=== PATIENT | male | born 1985 | race African-American/Black ===

== ENCOUNTER 2017-10-06 19:50 | Emergency (ER) | payer OTHER ==
[~2017-10-06] VITALS: Ht 167.6 cm; Wt 54.5 kg
[2017-10-06 22:05] VITALS: BP 132/91
== END 2017-10-06 22:07 | disposition home or self-care (01) ==
LOC: EMS 19:56
DX: Z76.0 Encounter for issue of repeat prescription (principal); F17.210 Nicotine dependence, cigarettes, uncomplicated
CPT/HCPCS: 99283

== ENCOUNTER 2022-03-25 04:46 | Emergency (ER) | payer OTHER ==
[~2022-03-25] VITALS: Ht 167.6 cm; Wt 68.2 kg
[2022-03-25 04:50] VITALS: BP 119/70
== END 2022-03-25 05:49 | disposition left against medical advice (07) ==
LOC: EMS 04:48
DX: Z53.21 Procedure and treatment not carried out due to patient leaving prior to being seen by health care provider (principal)

== ENCOUNTER 2022-10-23 19:12 | Inpatient (IN) | payer OTHER ==
[~2022-10-23] VITALS: Ht 167.6 cm; Wt 65.0 kg
[2022-10-23] MEDS ORDERED: KETOROLAC TROMETHAMINE 30 MG/ML VIAL IVP ONE (20:30)
[2022-10-23] MEDS ORDERED: ACETAMINOPHEN 500 MG TABLET PO ONE (20:30)
[2022-10-23] MEDS ORDERED: 0.9% SODIUM CHLORIDE 10 ML SYRINGE IVP PRN (20:30)
[2022-10-23] MEDS ORDERED: SODIUM CHLORIDE 0.9% 1,950 ML IV ONE (20:30)
[2022-10-23 20:45] LABS: BASOPHILS % (AUTO) 0.2 % (0.0-2.0); EOSINOPHILS % (AUTO) 0.1 % (1.0-6.0); HEMATOCRIT 36.8 % (41-53); HEMOGLOBIN 12.3 g/dL (13.5-17.5); LYMPHOCYTES # (AUTO) 0.7 K/uL (1.0-4.8); LYMPHOCYTES % (AUTO) 6.9 % (22.0-44.0); MEAN CORPUSCULAR HEMOGLOBIN 29.1 pg (26.0-34.0); MEAN CORPUSCULAR HGB CONC 33.3 G/dL (31.0-37.0); MEAN CORPUSCULAR VOLUME 87 fL (80-100); MONOCYTES # (AUTO) 0.6 K/uL (0.1-1.0); MONOCYTES % (AUTO) 6.5 % (2.0-9.0); NEUTROPHILS # (AUTO) 8.3 K/uL (1.8-7.7); PLATELET COUNT (AUTO) 298 K/uL (150-450); RED BLOOD CELL COUNT(AUTO) 4.22 MIL/uL (4.50-5.90); RED CELL DISTRIBUTION WIDTH 14.7 % (11.5-14.5)
[2022-10-23 20:46] LABS: NEUTROPHILS % (AUTO) 86.3 % (40.0-70.0)
[2022-10-23 20:55] LABS: ANION GAP 9 mmol/L (8-16); CALCIUM, TOTAL 9.2 mg/dL (8.8-10.5); CARBON DIOXIDE 27 mmol/L (22-29); CHLORIDE 97 mmol/L (98-107); CREATININE 1.08 mg/dL (0.60-1.30); GLOMERULAR FILTR. RATE CALC > 60 mL/min (>60); GLUCOSE,RANDOM 100 mg/dL (70-110); POTASSIUM 4.3 mmol/L (3.5-5.1); SODIUM SERUM 133 mmol/L (136-145); UREA NITROGEN, BLOOD 14 mg/dL (7-18)
[2022-10-23 20:59] LABS: INR 1.1 (0.9-1.1); PROTHROMBIN TIME 11.2 SEC (9.4-11.6)
[2022-10-23 21:03] LABS: LACTIC ACID 1.1 mmol/L (0.4-2.0)
[2022-10-23 21:15] LABS: B-TYPE NATRIURETIC PEPTIDE 25 pg/mL (0-100)
[2022-10-23 21:20] LABS: ALANINE AMINOTRANSFERASE 36 U/L (12-78); ALKALINE PHOSPHATASE 131 U/L (46-116); ASPARTATE AMINOTRANSFERASE 63 U/L (15-37); BILIRUBIN,TOTAL 0.6 mg/dL (0.1-1.0); CREATINE KINASE, TOTAL ONLY 1611 U/L (39-308); TOTAL PROTEIN, SERUM 8.3 g/dL (6.4-8.2)
[2022-10-23] MEDS ORDERED: CefTRIAXone 1 GM/DEXTROSE 50 ML IV ONE (22:15)
[2022-10-23] MEDS ORDERED: ONDANSETRON HCL 4 MG/2 ML VIAL IVP PRN (22:15)
[2022-10-23] MEDS ORDERED: AZITHROMYCIN 500 MG/NS 250 ML IV ONE (22:15)
[2022-10-23 22:25] LABS: COVID AG,FIA SOURCE NASOPHARYNGEAL
[2022-10-23] MEDS ORDERED: [UNRECOGNIZED DRUG - REMARK] CONTEPI (22:31)
[2022-10-23 22:38] LABS: INFLUENZA TYPE A NEGATIVE FOR TYPE A (NEGATIVE); INFLUENZA TYPE B NEGATIVE FOR TYPE B (NEGATIVE)
[2022-10-23 22:39] LABS: RAPID GROUP A STREP NEGATIVE (NEGATIVE)
[2022-10-23] MEDS: RINGERS SOLUTION,LACTATED 1,000 ML IV SCH (23:02)
[2022-10-23] MEDS: HEPARIN SODIUM,PORCINE 5,000 UNITS/ML VIAL SQ SCH (23:49)
[2022-10-24 01:21] VITALS: BP 101/67
[2022-10-24 02:03] LABS: APPEARANCE,URINE CLEAR (CLEAR); BILIRUBIN,URINE NEGATIVE (NEGATIVE); GLUCOSE, URINE (UA) NEGATIVE (NEGATIVE); KETONES,URINE NEGATIVE (NEGATIVE); LEUKOCYTE ESTERASE ,URINE NEGATIVE (NEGATIVE); NITRATE,URINE NEGATIVE (NEGATIVE); OCCULT BLOOD,URINE NEGATIVE (NEGATIVE); PH,URINE 6.5 (5.0-8.0); PROTEIN,URINE 30-70 mg/dL (NEGATIVE); SPECIFIC GRAVITIY, URINE 1.013 (1.003-1.030)
[2022-10-24 02:10] LABS: AMPHET/METH SCREEN,URINE POSITIVE (NEGATIVE); BARBITURATE SCREEN, URINE NEGATIVE (NEGATIVE); BENZODIAZEPINES SCREEN,URINE NEGATIVE (NEGATIVE); CANNABINOID SCREEN,URINE NEGATIVE (NEGATIVE); COCAINE SCREEN,URINE NEGATIVE (NEGATIVE); METHADONE SCREEN, URINE NEGATIVE (NEGATIVE); OPIATE SCREEN,URINE NEGATIVE (NEGATIVE); PHENCYCLIDINE SCREEN,URINE NEGATIVE (NEGATIVE)
[2022-10-24 04:24] VITALS: BP 114/60
[2022-10-24 07:57] VITALS: BP 118/64
[2022-10-24] MEDS: HEPARIN SODIUM,PORCINE 5,000 UNITS/ML VIAL SQ SCH ×3 (08:07→22:54)
[2022-10-24] MEDS: RINGERS SOLUTION,LACTATED 1,000 ML IV SCH ×2 (15:08→15:09)
[2022-10-24 15:37] VITALS: BP 114/68
[2022-10-24 19:36] VITALS: BP 121/62
[2022-10-24] MEDS: CefTRIAXone 1 GM/DEXTROSE 50 ML IV SCH (21:51)
[2022-10-24] MEDS: AZITHROMYCIN 500 MG/NS 250 ML IV SCH (22:54)
[2022-10-25 04:50] VITALS: BP 117/74
[2022-10-25] MEDS: RINGERS SOLUTION,LACTATED 1,000 ML IV SCH ×4 (05:47→21:48)
[2022-10-25] MEDS: ACETAMINOPHEN 325 MG TABLET PO PRN ×2 (05:47→15:10)
[2022-10-25 07:50] VITALS: BP 112/81
[2022-10-25] MEDS: HEPARIN SODIUM,PORCINE 5,000 UNITS/ML VIAL SQ SCH ×3 (08:28→23:29)
[2022-10-25 15:00] VITALS: BP 107/54
[2022-10-25 16:25] VITALS: BP 110/59
[2022-10-25] MEDS: CefTRIAXone 1 GM/DEXTROSE 50 ML IV SCH (20:57)
[2022-10-25] MEDS: AZITHROMYCIN 500 MG/NS 250 ML IV SCH (23:29)
[2022-10-25 23:44] VITALS: BP 118/58
[2022-10-26 04:11] VITALS: BP 128/77
[2022-10-26] MEDS: ACETAMINOPHEN 325 MG TABLET PO PRN (06:21)
[2022-10-26 07:36] LABS: ANION GAP 6 mmol/L (8-16); CALCIUM, TOTAL 9.5 mg/dL (8.8-10.5); CARBON DIOXIDE 27 mmol/L (22-29); CHLORIDE 102 mmol/L (98-107); GLOMERULAR FILTR. RATE CALC > 60 mL/min (>60); GLUCOSE,RANDOM 98 mg/dL (70-110); POTASSIUM 3.9 mmol/L (3.5-5.1); SODIUM SERUM 135 mmol/L (136-145); UREA NITROGEN, BLOOD 5 mg/dL (7-18)
[2022-10-26 08:06] LABS: BASOPHILS % (AUTO) 0.5 % (0.0-2.0); HEMATOCRIT 34.3 % (41-53); HEMOGLOBIN 11.6 g/dL (13.5-17.5); LYMPHOCYTES # (AUTO) 1.5 K/uL (1.0-4.8); LYMPHOCYTES % (AUTO) 21.5 % (22.0-44.0); MEAN CORPUSCULAR HEMOGLOBIN 29.3 pg (26.0-34.0); MEAN CORPUSCULAR HGB CONC 33.7 G/dL (31.0-37.0); MEAN CORPUSCULAR VOLUME 87 fL (80-100); MONOCYTES # (AUTO) 0.6 K/uL (0.1-1.0); NEUTROPHILS # (AUTO) 4.8 K/uL (1.8-7.7); PLATELET COUNT (AUTO) 389 K/uL (150-450); RED BLOOD CELL COUNT(AUTO) 3.95 MIL/uL (4.50-5.90); RED CELL DISTRIBUTION WIDTH 14.2 % (11.5-14.5)
[2022-10-26] MEDS: HEPARIN SODIUM,PORCINE 5,000 UNITS/ML VIAL SQ SCH ×2 (08:22→15:57)
[2022-10-26 10:41] VITALS: BP 128/70
[2022-10-26 14:06] LABS: S PNEUMO SOURCE Urine; STREP PNEUMONIAE AG URINE Positive (Negative)
[2022-10-26 15:06] LABS: LEGIONELLA PNEUMO AG URINE Negative (Negative)
[2022-10-26 15:48] VITALS: BP 114/58
== END 2022-10-26 18:50 | disposition left against medical advice (07) | DRG 720 ==
LOC: EMS 19:13 → 6N 22:58
PROVIDERS: ADMIT Internal Medicine; ATTEND Internal Medicine
DX: A41.9 Sepsis, unspecified organism (principal); G93.41 Metabolic encephalopathy; J13 Pneumonia due to Streptococcus pneumoniae; M62.82 Rhabdomyolysis; E22.2 Syndrome of inappropriate secretion of antidiuretic hormone; Z53.29 Procedure and treatment not carried out because of patient's decision for other reasons; Z20.822 Contact with and (suspected) exposure to COVID-19; F15.10 Other stimulant abuse, uncomplicated; Z91.199 Patient's noncompliance with other medical treatment and regimen due to unspecified reason
CPT/HCPCS: 71045; 80048; 80053; 80307; 81003; 82550; 83605; 83880; 84145; 84484; 85025; 85610; 86361; 87040; 87070; 87077; 87205; 87430; 87449; 87804; 87899; 93005; 99285; G0480; J0456; J0696; J1644; J1885; J7030; J7120; 36415-L1; 36415-TC

== ENCOUNTER 2022-11-15 14:08 | Emergency (ER) | payer OTHER ==
[~2022-11-15] VITALS: Ht 167.6 cm; Wt 61.4 kg
[~2022-11-15 14:08] MED LIST: [UNRECOGNIZED DRUG - REMARK] CONTEPI
[2022-11-15] MEDS ORDERED: ELVI1TAB3 PO (14:16)
[2022-11-15] MEDS ORDERED: BACI28OI9 TP (14:24)
[2022-11-15] MEDS ORDERED: BACITRACIN 28 GM OINTMENT TP ONE (14:30)
[2022-11-15 15:05] VITALS: BP 113/79
== END 2022-11-15 15:19 | disposition home or self-care (01) ==
LOC: EMS 14:10
DX: S61.401D Unspecified open wound of right hand, subsequent encounter (principal); F15.90 Other stimulant use, unspecified, uncomplicated; Z98.890 Other specified postprocedural states; X58.XXXD Exposure to other specified factors, subsequent encounter
CPT/HCPCS: 99283

== ENCOUNTER 2023-03-25 04:21 | Inpatient (IN) | payer OTHER ==
[~2023-03-25] VITALS: Ht 167.6 cm; Wt 59.1 kg
[~2023-03-25 04:21] MED LIST changes: +BACI28.410 TP; +CEPH-558 PO; +ELVI1TAB3 PO; +SULF-261 PO; -[UNRECOGNIZED DRUG - REMARK] CONTEPI
[2023-03-25] MEDS ORDERED: SULFAMETHOX/TRIMETH DS 800-160 MG/TABLET PO ONE (07:00)
[2023-03-25] MEDS ORDERED: CEPHALEXIN MONOHYDRATE 500 MG CAPSULE PO ONE (07:00)
[2023-03-25 08:19] LABS: BASOPHILS % (AUTO) 0.3 % (0.0-2.0); EOSINOPHILS % (AUTO) 2.1 % (1.0-6.0); HEMATOCRIT 37.7 % (41-53); HEMOGLOBIN 12.3 g/dL (13.5-17.5); LYMPHOCYTES % (AUTO) 23.9 % (22.0-44.0); MEAN CORPUSCULAR HEMOGLOBIN 27.2 pg (26.0-34.0); MEAN CORPUSCULAR HGB CONC 32.5 G/dL (31.0-37.0); MEAN CORPUSCULAR VOLUME 84 fL (80-100); MONOCYTES # (AUTO) 0.5 K/uL (0.1-1.0); MONOCYTES % (AUTO) 11.8 % (2.0-9.0); NEUTROPHILS # (AUTO) 2.5 K/uL (1.8-7.7); NEUTROPHILS % (AUTO) 61.9 % (40.0-70.0); PLATELET COUNT (AUTO) 235 K/uL (150-450); RED CELL DISTRIBUTION WIDTH 15.4 % (11.5-14.5); WHITE BLOOD COUNT (AUTO) 4.1 K/uL (4.5-11.0)
[2023-03-25 08:31] LABS: ANION GAP 8 mmol/L (8-16); CALCIUM, TOTAL 8.6 mg/dL (8.8-10.5); CARBON DIOXIDE 27 mmol/L (22-29); CHLORIDE 102 mmol/L (98-107); CREATININE 0.82 mg/dL (0.60-1.30); GLOMERULAR FILTR. RATE CALC > 60 mL/min (>60); GLUCOSE,RANDOM 101 mg/dL (70-110); POTASSIUM 3.6 mmol/L (3.5-5.1); SODIUM SERUM 137 mmol/L (136-145); UREA NITROGEN, BLOOD 11 mg/dL (7-18)
[2023-03-25 08:34] LABS: ALANINE AMINOTRANSFERASE 18 U/L (12-78); ALBUMIN 3.2 g/dL (3.4-5.0); ALKALINE PHOSPHATASE 104 U/L (46-116); ASPARTATE AMINOTRANSFERASE 26 U/L (15-37); BILIRUBIN,TOTAL 0.3 mg/dL (0.1-1.0); TOTAL PROTEIN, SERUM 7.1 g/dL (6.4-8.2)
[2023-03-25] MEDS ORDERED: VANCOMYCIN 1GM/WATER(PEG/NADA) 200 ML IV ONE (08:45)
[2023-03-25] MEDS ORDERED: PROPOFOL 1% 20 ML VIAL IVP ONE (12:00)
[2023-03-25] MEDS ORDERED: LIDOCAINE/PF 2% 5 ML VIAL IM ONE (12:00)
[2023-03-25] MEDS ORDERED: MORPHINE SULFATE 2 MG/ML SYRINGE IVP PRN (12:45)
[2023-03-25] MEDS ORDERED: ZOLPIDEM TARTRATE 5 MG TABLET PO PRN (12:45)
[2023-03-25] MEDS ORDERED: HYDROCODONE/ACETAMINOPHEN 5-325 MG TABLET PO PRN (12:45)
[2023-03-25] MEDS ORDERED: ACETAMINOPHEN 325 MG TABLET PO PRN (12:45)
[2023-03-25] MEDS ORDERED: MAGNESIUM HYDROXIDE SUSPENSION 30 ML UDCUP PO PRN (12:45)
[2023-03-25] MEDS ORDERED: ONDANSETRON HCL 4 MG/2 ML VIAL IVP PRN (12:45)
[2023-03-25] MEDS ORDERED: BISACODYL 10 MG RECTAL RECTAL SUPPOSITORY PR PRN (12:45)
[2023-03-25 15:27] VITALS: BP 115/71; PULSE 78; RESP 20; TEMP 97.9; O2SAT 99
[2023-03-25] MEDS ORDERED: SODIUM CHLORIDE 0.9% 500 ML IV ONE (16:14)
[2023-03-25] MEDS: VANCOMYCIN HCL 750 MG in DEXTROSE 5%-WATER 250 ML IV SCH ×2 (17:14→23:26)
[2023-03-25] MEDS: HEPARIN SODIUM,PORCINE 5,000 UNITS/ML VIAL SQ SCH ×2 (17:17→23:27)
[2023-03-25 18:16] VITALS: BP 115/71; PULSE 78; RESP 20; TEMP 97.9
[2023-03-25 19:55] VITALS: BP 123/73; PULSE 83; RESP 20; TEMP 98.2
[2023-03-25] MEDS: DOCUSATE SODIUM 100 MG CAPSULE PO SCH (20:00)
[2023-03-26 04:25] VITALS: BP 99/72; PULSE 73; RESP 18; TEMP 97.9
[2023-03-26 07:52] LABS: BASOPHILS % (AUTO) 0.7 % (0.0-2.0); EOSINOPHILS % (AUTO) 2.9 % (1.0-6.0); HEMATOCRIT 41.4 % (41-53); HEMOGLOBIN 13.3 g/dL (13.5-17.5); LYMPHOCYTES # (AUTO) 1.2 K/uL (1.0-4.8); LYMPHOCYTES % (AUTO) 33.7 % (22.0-44.0); MEAN CORPUSCULAR HGB CONC 32.2 G/dL (31.0-37.0); MEAN CORPUSCULAR VOLUME 84 fL (80-100); MONOCYTES # (AUTO) 0.5 K/uL (0.1-1.0); MONOCYTES % (AUTO) 13.6 % (2.0-9.0); NEUTROPHILS # (AUTO) 1.8 K/uL (1.8-7.7); NEUTROPHILS % (AUTO) 49.1 % (40.0-70.0); PLATELET COUNT (AUTO) 250 K/uL (150-450); RED BLOOD CELL COUNT(AUTO) 4.93 MIL/uL (4.50-5.90); RED CELL DISTRIBUTION WIDTH 15.7 % (11.5-14.5); WHITE BLOOD COUNT (AUTO) 3.6 K/uL (4.5-11.0)
[2023-03-26 08:11] LABS: ANION GAP 9 mmol/L (8-16); CALCIUM, TOTAL 8.9 mg/dL (8.8-10.5); CARBON DIOXIDE 26 mmol/L (22-29); CHLORIDE 101 mmol/L (98-107); CREATININE 0.96 mg/dL (0.60-1.30); GLOMERULAR FILTR. RATE CALC > 60 mL/min (>60); GLUCOSE,RANDOM 82 mg/dL (70-110); POTASSIUM 4.5 mmol/L (3.5-5.1); SODIUM SERUM 136 mmol/L (136-145); UREA NITROGEN, BLOOD 15 mg/dL (7-18)
[2023-03-26 08:22] LABS: VANCOMYCIN,RANDOM 16.1 mcg/mL (25.0-50.0)
[2023-03-26 08:24] VITALS: BP 104/75; PULSE 79; RESP 20; TEMP 97.7
[2023-03-26] MEDS: HEPARIN SODIUM,PORCINE 5,000 UNITS/ML VIAL SQ SCH ×2 (08:32→15:43)
[2023-03-26] MEDS: PANTOPRAZOLE SODIUM 40 MG DR TABLET PO SCH (08:33)
[2023-03-26] MEDS: ELVITEG/COB/EMTRI/TENOF ALAFEN 150-150-200-10MG TABLET PO SCH (08:33)
[2023-03-26] MEDS: DOCUSATE SODIUM 100 MG CAPSULE PO SCH ×2 (08:33→21:00)
[2023-03-26] MEDS: VANCOMYCIN HCL 750 MG in DEXTROSE 5%-WATER 250 ML IV SCH ×2 (09:36→15:43)
[2023-03-26 16:44] VITALS: BP 110/56; PULSE 68; RESP 20; TEMP 98.4
[2023-03-26 20:10] VITALS: BP 119/74; PULSE 70; RESP 18; TEMP 98.4
[2023-03-27] MEDS: HEPARIN SODIUM,PORCINE 5,000 UNITS/ML VIAL SQ SCH ×4 (00:05→23:26)
[2023-03-27] MEDS: VANCOMYCIN HCL 750 MG in DEXTROSE 5%-WATER 250 ML IV SCH ×4 (00:05→23:37)
[2023-03-27 04:38] VITALS: BP 123/68; PULSE 66; RESP 20; TEMP 98.9
[2023-03-27 07:06] LABS: BASOPHILS % (AUTO) 0.5 % (0.0-2.0); EOSINOPHILS % (AUTO) 2.8 % (1.0-6.0); HEMATOCRIT 41.5 % (41-53); HEMOGLOBIN 13.6 g/dL (13.5-17.5); LYMPHOCYTES # (AUTO) 1.4 K/uL (1.0-4.8); LYMPHOCYTES % (AUTO) 37.1 % (22.0-44.0); MEAN CORPUSCULAR HEMOGLOBIN 27.3 pg (26.0-34.0); MEAN CORPUSCULAR HGB CONC 32.7 G/dL (31.0-37.0); MEAN CORPUSCULAR VOLUME 84 fL (80-100); MONOCYTES # (AUTO) 0.5 K/uL (0.1-1.0); MONOCYTES % (AUTO) 13.9 % (2.0-9.0); NEUTROPHILS # (AUTO) 1.7 K/uL (1.8-7.7); NEUTROPHILS % (AUTO) 45.7 % (40.0-70.0); PLATELET COUNT (AUTO) 266 K/uL (150-450); RED BLOOD CELL COUNT(AUTO) 4.97 MIL/uL (4.50-5.90); RED CELL DISTRIBUTION WIDTH 15.5 % (11.5-14.5); WHITE BLOOD COUNT (AUTO) 3.8 K/uL (4.5-11.0)
[2023-03-27 07:17] LABS: ANION GAP 8 mmol/L (8-16); CARBON DIOXIDE 27 mmol/L (22-29); CHLORIDE 101 mmol/L (98-107); CREATININE 0.89 mg/dL (0.60-1.30); GLOMERULAR FILTR. RATE CALC > 60 mL/min (>60); GLUCOSE,RANDOM 86 mg/dL (70-110); POTASSIUM 4.2 mmol/L (3.5-5.1); SODIUM SERUM 136 mmol/L (136-145); UREA NITROGEN, BLOOD 15 mg/dL (7-18)
[2023-03-27 08:37] VITALS: BP 114/58; PULSE 68; RESP 20; TEMP 98.6
[2023-03-27] MEDS: ELVITEG/COB/EMTRI/TENOF ALAFEN 150-150-200-10MG TABLET PO SCH (08:56)
[2023-03-27] MEDS: DOCUSATE SODIUM 100 MG CAPSULE PO SCH ×2 (08:57→19:34)
[2023-03-27] MEDS: PANTOPRAZOLE SODIUM 40 MG DR TABLET PO SCH (08:57)
[2023-03-27 15:04] LABS: ALCOHOL, URINE DRUG SCREEN NEGATIVE (NEGATIVE); AMPHET/METH SCREEN,URINE NEGATIVE (NEGATIVE); BARBITURATE SCREEN, URINE NEGATIVE (NEGATIVE); BENZODIAZEPINES SCREEN,URINE NEGATIVE (NEGATIVE); CANNABINOID SCREEN,URINE NEGATIVE (NEGATIVE); COCAINE SCREEN,URINE NEGATIVE (NEGATIVE); METHADONE SCREEN, URINE NEGATIVE (NEGATIVE); OPIATE SCREEN,URINE NEGATIVE (NEGATIVE); PHENCYCLIDINE SCREEN,URINE NEGATIVE (NEGATIVE)
[2023-03-27 16:31] VITALS: BP 120/58; PULSE 65; RESP 20; TEMP 98.4
[2023-03-27 20:49] VITALS: BP 111/64; PULSE 82; RESP 18; TEMP 98.9
[2023-03-28 04:00] VITALS: BP 113/71; PULSE 65; RESP 16; TEMP 97.9
[2023-03-28 07:19] LABS: ANION GAP 8 mmol/L (8-16); CALCIUM, TOTAL 9.2 mg/dL (8.8-10.5); CARBON DIOXIDE 28 mmol/L (22-29); CHLORIDE 101 mmol/L (98-107); CREATININE 0.86 mg/dL (0.60-1.30); GLOMERULAR FILTR. RATE CALC > 60 mL/min (>60); GLUCOSE,RANDOM 86 mg/dL (70-110); POTASSIUM 4.1 mmol/L (3.5-5.1); SODIUM SERUM 137 mmol/L (136-145); UREA NITROGEN, BLOOD 16 mg/dL (7-18)
[2023-03-28] MEDS ORDERED: SODIUM CHLORIDE 0.9% 1,000 ML ONE (07:20)
[2023-03-28 07:24] LABS: BASOPHILS % (AUTO) 0.5 % (0.0-2.0); HEMATOCRIT 43.7 % (41-53); HEMOGLOBIN 13.9 g/dL (13.5-17.5); LYMPHOCYTES # (AUTO) 1.7 K/uL (1.0-4.8); LYMPHOCYTES % (AUTO) 38.9 % (22.0-44.0); MEAN CORPUSCULAR HEMOGLOBIN 26.5 pg (26.0-34.0); MEAN CORPUSCULAR HGB CONC 31.7 G/dL (31.0-37.0); MEAN CORPUSCULAR VOLUME 84 fL (80-100); MONOCYTES # (AUTO) 0.7 K/uL (0.1-1.0); NEUTROPHILS # (AUTO) 1.8 K/uL (1.8-7.7); NEUTROPHILS % (AUTO) 42.6 % (40.0-70.0); PLATELET COUNT (AUTO) 278 K/uL (150-450); RED BLOOD CELL COUNT(AUTO) 5.22 MIL/uL (4.50-5.90); WHITE BLOOD COUNT (AUTO) 4.3 K/uL (4.5-11.0)
[2023-03-28] MEDS: HEPARIN SODIUM,PORCINE 5,000 UNITS/ML VIAL SQ SCH ×3 (08:00→23:10)
[2023-03-28] MEDS ORDERED: FentaNYL CITRATE PF 100 MCG/2 ML VIAL IVP PRN (08:45)
[2023-03-28] MEDS ORDERED: HYDROmorphone HCL 2 MG/ML SYRINGE IVP PRN (08:45)
[2023-03-28] MEDS ORDERED: LIDOCAINE/PF 1% 30 ML VIAL PERC ONE (08:55)
[2023-03-28] MEDS ORDERED: VANCOMYCIN HCL 1 GM/VIAL IRRIG ONE (08:55)
[2023-03-28] MEDS ORDERED: BUPIVACAINE HCL/PF 0.5% 30 ML VIAL PERC ONE (08:55)
[2023-03-28] MEDS: DOCUSATE SODIUM 100 MG CAPSULE PO SCH ×2 (09:00→20:14)
[2023-03-28] MEDS: VANCOMYCIN HCL 750 MG in DEXTROSE 5%-WATER 250 ML IV SCH ×3 (10:37→23:10)
[2023-03-28] MEDS: ELVITEG/COB/EMTRI/TENOF ALAFEN 150-150-200-10MG TABLET PO SCH (10:38)
[2023-03-28] MEDS: PANTOPRAZOLE SODIUM 40 MG DR TABLET PO SCH (10:38)
[2023-03-28 16:40] VITALS: BP 121/65; PULSE 77; RESP 20; TEMP 99
[2023-03-28] MEDS ORDERED: OXYGEN THERAPY IH SCH (20:00)
[2023-03-28 20:17] VITALS: BP 120/70; PULSE 70; RESP 20; TEMP 98
[2023-03-28] MEDS ORDERED: SODIUM CHLORIDE 0.9% 500 ML IV ONE (22:57)
[2023-03-29 04:02] VITALS: BP 114/70; PULSE 61; RESP 20; TEMP 98.2
[2023-03-29 07:41] LABS: ANION GAP 8 mmol/L (8-16); CALCIUM, TOTAL 9.2 mg/dL (8.8-10.5); CARBON DIOXIDE 28 mmol/L (22-29); CHLORIDE 100 mmol/L (98-107); CREATININE 0.89 mg/dL (0.60-1.30); GLOMERULAR FILTR. RATE CALC > 60 mL/min (>60); GLUCOSE,RANDOM 86 mg/dL (70-110); POTASSIUM 4.2 mmol/L (3.5-5.1); SODIUM SERUM 136 mmol/L (136-145); UREA NITROGEN, BLOOD 16 mg/dL (7-18)
[2023-03-29] MEDS: ELVITEG/COB/EMTRI/TENOF ALAFEN 150-150-200-10MG TABLET PO SCH (08:01)
[2023-03-29] MEDS: PANTOPRAZOLE SODIUM 40 MG DR TABLET PO SCH (08:02)
[2023-03-29] MEDS: DOCUSATE SODIUM 100 MG CAPSULE PO SCH ×2 (08:02→20:46)
[2023-03-29] MEDS: VANCOMYCIN HCL 750 MG in DEXTROSE 5%-WATER 250 ML IV SCH ×3 (08:02→23:28)
[2023-03-29] MEDS: HEPARIN SODIUM,PORCINE 5,000 UNITS/ML VIAL SQ SCH ×3 (08:02→23:28)
[2023-03-29 08:19] VITALS: BP 112/75; PULSE 62; RESP 19; TEMP 98.5
[2023-03-29 15:58] VITALS: BP 127/72; PULSE 78; RESP 18; TEMP 98.8
[2023-03-29 20:58] VITALS: BP 120/69; PULSE 67; RESP 18; TEMP 97.9
[2023-03-30 05:18] VITALS: BP 106/72; PULSE 87; RESP 18; TEMP 98.4
[2023-03-30 07:58] LABS: ANION GAP 11 mmol/L (8-16); CALCIUM, TOTAL 9.2 mg/dL (8.8-10.5); CARBON DIOXIDE 26 mmol/L (22-29); CHLORIDE 98 mmol/L (98-107); CHOL/HDL RATIO 3.4 (4.2-7.3); CHOLESTEROL 204 mg/dL (131-200); CREATININE 0.97 mg/dL (0.60-1.30); GLOMERULAR FILTR. RATE CALC > 60 mL/min (>60); GLUCOSE,RANDOM 101 mg/dL (70-110); HDL CHOLESTEROL 60 mg/dL (40-60); LDL CHOL (CALC.) 124 mg/dL (0-130); POTASSIUM 3.8 mmol/L (3.5-5.1); SODIUM SERUM 135 mmol/L (136-145); TRIGLYCERIDES 101 mg/dL (15-150); UREA NITROGEN, BLOOD 15 mg/dL (7-18)
[2023-03-30 08:20] VITALS: BP 120/72; PULSE 92; RESP 19; TEMP 98.8
[2023-03-30] MEDS: ELVITEG/COB/EMTRI/TENOF ALAFEN 150-150-200-10MG TABLET PO SCH (08:49)
[2023-03-30] MEDS: VANCOMYCIN HCL 750 MG in DEXTROSE 5%-WATER 250 ML IV SCH ×3 (08:49→23:30)
[2023-03-30] MEDS: DOCUSATE SODIUM 100 MG CAPSULE PO SCH ×2 (08:50→20:08)
[2023-03-30] MEDS: HEPARIN SODIUM,PORCINE 5,000 UNITS/ML VIAL SQ SCH ×4 (08:50→23:30)
[2023-03-30] MEDS: PANTOPRAZOLE SODIUM 40 MG DR TABLET PO SCH (08:50)
[2023-03-30 19:32] VITALS: BP 104/64; PULSE 64; RESP 20; TEMP 98.7
[2023-03-30] MEDS: ETHYL ALCOHOL 62% ANTISEPTIC NASAL SANITIZER 0.6 ML AMPUL NASAL SCH (20:08)
[2023-03-31 03:52] VITALS: BP 112/56; PULSE 82; RESP 18; TEMP 98.1
[2023-03-31 08:07] LABS: ANION GAP 8 mmol/L (8-16); CALCIUM, TOTAL 9.3 mg/dL (8.8-10.5); CARBON DIOXIDE 28 mmol/L (22-29); CHLORIDE 100 mmol/L (98-107); GLOMERULAR FILTR. RATE CALC > 60 mL/min (>60); GLUCOSE,RANDOM 97 mg/dL (70-110); POTASSIUM 4.1 mmol/L (3.5-5.1); SODIUM SERUM 136 mmol/L (136-145); UREA NITROGEN, BLOOD 15 mg/dL (7-18)
[2023-03-31 08:38] VITALS: BP 100/60; PULSE 83; RESP 20; TEMP 98.4
[2023-03-31] MEDS: ETHYL ALCOHOL 62% ANTISEPTIC NASAL SANITIZER 0.6 ML AMPUL NASAL SCH ×2 (08:56→20:54)
[2023-03-31] MEDS: ELVITEG/COB/EMTRI/TENOF ALAFEN 150-150-200-10MG TABLET PO SCH (08:56)
[2023-03-31] MEDS: DOCUSATE SODIUM 100 MG CAPSULE PO SCH ×2 (08:56→20:54)
[2023-03-31] MEDS: PANTOPRAZOLE SODIUM 40 MG DR TABLET PO SCH (08:56)
[2023-03-31] MEDS: VANCOMYCIN HCL 750 MG in DEXTROSE 5%-WATER 250 ML IV SCH ×3 (09:07→23:15)
[2023-03-31] MEDS: HEPARIN SODIUM,PORCINE 5,000 UNITS/ML VIAL SQ SCH ×3 (09:08→23:13)
[2023-03-31 09:32] LABS: VANCOMYCIN,RANDOM 20.3 mcg/mL (25.0-50.0)
[2023-03-31] MEDS ORDERED: CIPR250T6 PO (11:48)
[2023-03-31 16:00] VITALS: BP 103/62; PULSE 74; RESP 20; TEMP 98.2
[2023-03-31 20:36] VITALS: BP 115/72; PULSE 77; RESP 18; TEMP 98.4
[2023-03-31] MEDS ORDERED: SODIUM CHLORIDE 0.9% 250 ML IV ONE (22:36)
[2023-04-01 04:49] VITALS: BP 100/52; PULSE 78; RESP 18; TEMP 98.7
[2023-04-01 08:00] LABS: ANION GAP 6 mmol/L (8-16); CALCIUM, TOTAL 9.2 mg/dL (8.8-10.5); CARBON DIOXIDE 31 mmol/L (22-29); CHLORIDE 99 mmol/L (98-107); CREATININE 1.11 mg/dL (0.60-1.30); GLOMERULAR FILTR. RATE CALC > 60 mL/min (>60); GLUCOSE,RANDOM 80 mg/dL (70-110); SODIUM SERUM 136 mmol/L (136-145); UREA NITROGEN, BLOOD 15 mg/dL (7-18)
[2023-04-01 08:15] VITALS: BP 100/65; PULSE 59; RESP 20; TEMP 98.2
[2023-04-01] MEDS: VANCOMYCIN HCL 750 MG in DEXTROSE 5%-WATER 250 ML IV SCH ×2 (08:26→16:46)
[2023-04-01] MEDS: HEPARIN SODIUM,PORCINE 5,000 UNITS/ML VIAL SQ SCH ×2 (08:26→16:46)
[2023-04-01] MEDS: ETHYL ALCOHOL 62% ANTISEPTIC NASAL SANITIZER 0.6 ML AMPUL NASAL SCH (08:26)
[2023-04-01] MEDS: PANTOPRAZOLE SODIUM 40 MG DR TABLET PO SCH (08:26)
[2023-04-01] MEDS: ELVITEG/COB/EMTRI/TENOF ALAFEN 150-150-200-10MG TABLET PO SCH (08:27)
[2023-04-01] MEDS: DOCUSATE SODIUM 100 MG CAPSULE PO SCH (08:27)
[2023-04-01] MEDS ORDERED: CIPR250T6 PO (12:40)
[2023-04-01 15:36] VITALS: BP 101/68; PULSE 80; RESP 19; TEMP 98.7
== END 2023-04-01 18:55 | disposition home or self-care (01) | DRG 344 ==
LOC: EMS 04:22 → 6S 14:35
PROVIDERS: ADMIT Internal Medicine; ATTEND Internal Medicine
PROC: 0JBR0ZZ Excision of Left Foot Subcutaneous Tissue and Fascia, Open Approach (ICD-10-PCS; principal; 2023-03-30)
DX: M86.8X7 Other osteomyelitis, ankle and foot (principal); I96 Gangrene, not elsewhere classified; L02.611 Cutaneous abscess of right foot; L03.116 Cellulitis of left lower limb; F15.10 Other stimulant abuse, uncomplicated; Z79.899 Other long term (current) drug therapy; Z21 Asymptomatic human immunodeficiency virus [HIV] infection status
CPT/HCPCS: 80048; 80053; 80061; 80202; 80307; 85025; 87015; 87040; 87070; 87081; 87101; 87186; 87205; 87206; 88300; 99285; J1644; J2704; J3370; J3490; J7030; J7040; J7050; J7060; Q9967; 36415-L1; 36415-TC; Z7610

== ENCOUNTER 2023-06-13 09:51 | Emergency (ER) | payer OTHER ==
[~2023-06-13] VITALS: Ht 167.6 cm; Wt 59.1 kg
[~2023-06-13 09:51] MED LIST changes: -BACI28.410 TP; -CEPH-558 PO; +CIPR250T6 PO; -SULF-261 PO
[2023-06-13 09:56] VITALS: BP 135/66; PULSE 102; RESP 18; TEMP 98.2
[2023-06-13] MEDS ORDERED: BACI28.410 TP (10:29)
== END 2023-06-13 13:46 | disposition home or self-care (01) ==
LOC: EMS 09:55
DX: L85.3 Xerosis cutis (principal); F15.90 Other stimulant use, unspecified, uncomplicated; Z98.890 Other specified postprocedural states
CPT/HCPCS: 99282; Z7502

== ENCOUNTER 2023-06-30 03:07 | Emergency (ER) | payer OTHER ==
[~2023-06-30] VITALS: Ht 167.6 cm; Wt 56.8 kg
[~2023-06-30 03:07] MED LIST changes: +BACI28.410 TP; -CIPR250T6 PO
[2023-06-30 03:16] VITALS: BP 126/86; PULSE 97; RESP 14; TEMP 97.7
== END 2023-06-30 03:39 | disposition left against medical advice (07) ==
LOC: EMS 03:09
DX: M79.644 Pain in right finger(s) (principal); Z53.21 Procedure and treatment not carried out due to patient leaving prior to being seen by health care provider
CPT/HCPCS: 99281; Z7502

== ENCOUNTER 2023-07-01 21:06 | Emergency (ER) | payer OTHER ==
[~2023-07-01] VITALS: Ht 165.1 cm; Wt 56.8 kg
[~2023-07-01 21:06] MED LIST changes: -BACI28.410 TP
[2023-07-01 21:33] VITALS: BP 122/78; PULSE 55; RESP 16; TEMP 98.8
== END 2023-07-01 22:56 | disposition left against medical advice (07) ==
LOC: EMS 21:06
DX: M79.644 Pain in right finger(s) (principal); Z53.21 Procedure and treatment not carried out due to patient leaving prior to being seen by health care provider
CPT/HCPCS: 99281; Z7502

== ENCOUNTER 2023-08-08 08:58 | Emergency (ER) | payer OTHER ==
[~2023-08-08] VITALS: Ht 167.6 cm; Wt 54.5 kg
[2023-08-08 09:02] VITALS: BP 132/84; PULSE 108; RESP 18; TEMP 98
== END 2023-08-08 10:04 | disposition left against medical advice (07) ==
LOC: EMS 09:13
DX: L02.612 Cutaneous abscess of left foot (principal); L02.611 Cutaneous abscess of right foot; Z53.21 Procedure and treatment not carried out due to patient leaving prior to being seen by health care provider
CPT/HCPCS: 99281; Z7502

== ENCOUNTER 2023-08-31 18:17 | Emergency (ER) | payer OTHER ==
[~2023-08-31] VITALS: Ht 167.6 cm; Wt 6.1 kg
[2023-08-31 18:39] VITALS: TEMP 98.2
[2023-08-31 21:30] VITALS: BP 118/62; PULSE 62; RESP 16
== END 2023-09-01 00:47 | disposition left against medical advice (07) ==
LOC: EMS 18:26
DX: M25.522 Pain in left elbow (principal); Z53.21 Procedure and treatment not carried out due to patient leaving prior to being seen by health care provider
CPT/HCPCS: 99281

== ENCOUNTER 2023-09-10 09:45 | Emergency (ER) | payer OTHER ==
[~2023-09-10] VITALS: Ht 172.7 cm; Wt 68.2 kg
[2023-09-10 09:53] VITALS: TEMP 98
[2023-09-10] MEDS ORDERED: SULF-261 PO (13:00)
[2023-09-10] MEDS ORDERED: ELVI1TAB3 PO (13:00)
[2023-09-10] MEDS ORDERED: CEPH-558 PO (13:00)
[2023-09-10] MEDS ORDERED: IBUP-1492 PO (13:21)
[2023-09-10] MEDS: CEPHALEXIN MONOHYDRATE 500 MG CAPSULE PO ONE (13:25)
[2023-09-10] MEDS: SULFAMETHOX/TRIMETH DS 800-160 MG/TABLET PO ONE (13:25)
[2023-09-10] MEDS: IBUPROFEN 600 MG TABLET PO ONE (13:25)
[2023-09-10 13:42] VITALS: BP 129/72; PULSE 89; RESP 18
== END 2023-09-10 13:44 | disposition home or self-care (01) ==
LOC: EMS 09:45
DX: M70.32 Other bursitis of elbow, left elbow (principal); F15.90 Other stimulant use, unspecified, uncomplicated; Z98.890 Other specified postprocedural states; Y93.89 Activity, other specified
CPT/HCPCS: 99284; Z7502; Z7610

== ENCOUNTER 2023-12-27 20:05 | Emergency (ER) | payer OTHER ==
[~2023-12-27] VITALS: Ht 170.2 cm; Wt 61.4 kg
[~2023-12-27 20:05] MED LIST changes: +CEPH-558 PO; +IBUP-1492 PO; +SULF-261 PO
[2023-12-27 20:09] VITALS: TEMP 98.5
[2023-12-27] MEDS ORDERED: DOXY-354 PO (21:30)
[2023-12-27] MEDS ORDERED: ACET-2247 PO (21:30)
[2023-12-27] MEDS: ACETAMINOPHEN 325 MG TABLET PO ONE (21:48)
[2023-12-27] MEDS: BACITRACIN 28 GM OINTMENT TP ONE (21:48)
[2023-12-27] MEDS: DOXYCYCLINE HYCLATE 100 MG TABLET PO ONE (21:48)
[2023-12-27] MEDS: OLANZapine 10 MG TABLET PO ONE (23:21)
[2023-12-27 23:47] VITALS: BP 110/72; PULSE 78; RESP 16
== END 2023-12-27 23:51 | disposition home or self-care (01) ==
LOC: EMS 20:06
DX: S81.001A Unspecified open wound, right knee, initial encounter (principal); F15.90 Other stimulant use, unspecified, uncomplicated; X58.XXXA Exposure to other specified factors, initial encounter; Y93.89 Activity, other specified; Y92.89 Other specified places as the place of occurrence of the external cause; Y99.8 Other external cause status
CPT/HCPCS: 99284; Z7502; Z7610

== ENCOUNTER 2024-10-12 09:57 | Emergency (ER) | payer OTHER ==
[~2024-10-12] VITALS: Ht 167.6 cm; Wt 59.0 kg
[~2024-10-12 09:57] MED LIST changes: +ACET-2247 PO; -CEPH-558 PO; +DOXY-354 PO; -SULF-261 PO
[2024-10-12 10:02] VITALS: TEMP 98.8
[2024-10-12 14:00] VITALS: BP 124/82; PULSE 85; RESP 18; O2SAT 100
[2024-10-12] MEDS ORDERED: SULF-261 PO (14:24)
== END 2024-10-12 14:58 | disposition home or self-care (01) ==
LOC: EMS 10:05
DX: L97.529 Non-pressure chronic ulcer of other part of left foot with unspecified severity (principal); F15.90 Other stimulant use, unspecified, uncomplicated; Z59.00 Homelessness unspecified; Z98.890 Other specified postprocedural states
CPT/HCPCS: 99283

== ENCOUNTER 2025-06-01 03:33 | Emergency (ER) | payer OTHER ==
[~2025-06-01] VITALS: Ht 170.2 cm; Wt 68.2 kg
[~2025-06-01 03:33] MED LIST changes: -ACET-2247 PO; -DOXY-354 PO; -IBUP-1492 PO; +SULF1TAB94 PO
[2025-06-01 04:26] VITALS: BP 127/64; PULSE 83; RESP 14; TEMP 98.4; O2SAT 100
== END 2025-06-01 09:56 | disposition left against medical advice (07) ==
LOC: EMS 03:46
DX: R32 Unspecified urinary incontinence (principal); R35.1 Nocturia; Z53.21 Procedure and treatment not carried out due to patient leaving prior to being seen by health care provider
CPT/HCPCS: 99281; Z7502